=== PATIENT | female | born 1975 | race Asian ===

== ENCOUNTER 2018-02-17 13:51 | Emergency (ER) | payer BC ==
[~2018-02-17] VITALS: Ht 162.6 cm; Wt 55.3 kg
[2018-02-17 14:07] VITALS: Ht 162.6 cm; Wt 55.3 kg
[2018-02-17 16:09] LABS: BASOPHIL % 0.1 % (0-2); PLATELET COUNT 216 x10^3mcL (130-400)
[2018-02-17 16:11] LABS: CALCIUM 8.4 mg/dL (8.5-10.1); CARBON DIOXIDE 27.8 mmol/L (21-32); CHLORIDE SERUM 104 mmol/L (98-107); CREATININE SERUM 0.4 mg/dL (0.6-1.0); GFR1 > 60 mL/min; GLUCOSE SERUM 89 mg/dL (74-106); POTASSIUM SERUM 3.8 mmol/L (3.5-5.1); SODIUM SERUM 141 mmol/L (136-145)
[2018-02-17 16:13] LABS: RED CELL DISTRIBUTION WIDTH 14.6 % (11.5-14.5)
[2018-02-17 16:17] LABS: ALBUMIN 3.6 g/dL (3.4-5.0); ALKALINE PHOSPHATASE 63 U/L (46-116); ALT/SGPT 19 U/L (14-59); AST/SGOT 21 U/L (15-37); BILIRUBIN TOTAL 0.54 mg/dL (0.20-1.00); LIPASE 146 IU/L (73-393)
[2018-02-17 16:46] VITALS: BP 92/55
== END 2018-02-17 16:46 | disposition home or self-care (01) ==
LOC: ED 13:51
PROVIDERS: Emergency Medicine
DX: R10.9 Unspecified abdominal pain (principal); R11.10 Vomiting, unspecified; R19.7 Diarrhea, unspecified
CPT/HCPCS: J1885; J2405; J3010; J7030; Q0092

== ENCOUNTER 2019-01-13 07:44 | Emergency (ER) | payer OTHER, BC ==
[~2019-01-13] VITALS: Ht 160 cm; Wt 55.8 kg
[2019-01-13 07:52] VITALS: Ht 160 cm; Wt 55.8 kg
[2019-01-13 08:30] LABS: BASOPHIL % 0.8 % (0-2); PLATELET COUNT 203 x10^3mcL (130-400); RED CELL DISTRIBUTION WIDTH 13.5 % (11.5-14.5)
[2019-01-13 08:48] LABS: CALCIUM 8.5 mg/dL (8.5-10.1); CARBON DIOXIDE 25.5 mmol/L (21-32); CHLORIDE SERUM 99 mmol/L (98-107); CREATININE SERUM 0.7 mg/dL (0.6-1.0); GFR1 > 60 mL/min; GLUCOSE SERUM 118 mg/dL (74-106); POTASSIUM SERUM 3.6 mmol/L (3.5-5.1); SODIUM SERUM 135 mmol/L (136-145)
[2019-01-13 08:53] LABS: ALBUMIN 3.9 g/dL (3.4-5.0); ALKALINE PHOSPHATASE 76 U/L (46-116); ALT/SGPT 36 U/L (14-59); AST/SGOT 33 U/L (15-37); BILIRUBIN TOTAL 0.31 mg/dL (0.20-1.00); TOTAL PROTEIN, SERUM 7.7 g/dL (6.4-8.2)
[2019-01-13 08:57] LABS: CK-MB < 0.5 ng/mL (0-3.6); CREATINE KINASE 54 U/L (26-192); UA SPECIFIC GRAVITY 1.025 (1.005-1.035); microscopic required? YES; urine erythrocyte 3+ (NEGATIVE)
[2019-01-13 08:58] LABS: FREE T4 0.86 ng/dL (0.76-1.46); FREE THYROXINE INDEX 2.5 ug/dL (1.4-4.5); T4(THYROXINE) 7.1 ug/dL (4.7-13.3)
[2019-01-13 09:27] LABS: T3 TOTAL 0.59 ng/mL
[2019-01-13 10:33] LABS: ERYTHROCYTE SED RATE 25 mm/hr (0-20)
[2019-01-13 12:00] VITALS: BP 98/61
== END 2019-01-13 12:00 | disposition home or self-care (01) ==
LOC: ED 07:44
PROVIDERS: Specialist
DX: J10.1 Influenza due to other identified influenza virus with other respiratory manifestations (principal); M79.10 Myalgia, unspecified site
CPT/HCPCS: 84439; 87804; J1885; J7030; Q0092

== ENCOUNTER 2019-08-24 22:47 | Inpatient (IN) | payer OTHER, BC ==
[~2019-08-24] VITALS: Ht 160 cm; Wt 61.9 kg
[2019-08-24 22:53] VITALS: Ht 160 cm; Wt 61.9 kg
[2019-08-25 00:20] LABS: BASOPHIL % 1.2 % (0-2); PLATELET COUNT 300 x10^3mcL (130-400); RED CELL DISTRIBUTION WIDTH 13.2 % (11.5-14.5)
[2019-08-25 00:27] LABS: CALCIUM 8.8 mg/dL (8.5-10.1); CARBON DIOXIDE 32.7 mmol/L (21-32); CHLORIDE SERUM 101 mmol/L (98-107); CREATININE SERUM 0.7 mg/dL (0.6-1.0); GFR1 > 60 mL/min; GLUCOSE SERUM 96 mg/dL (74-106); POTASSIUM SERUM 3.7 mmol/L (3.5-5.1); SODIUM SERUM 140 mmol/L (136-145)
[2019-08-25 00:32] LABS: ALBUMIN 3.8 g/dL (3.4-5.0); ALKALINE PHOSPHATASE 81 U/L (46-116); ALT/SGPT 43 U/L (14-59); AST/SGOT 29 U/L (15-37); BILIRUBIN TOTAL 0.1 mg/dL (0.20-1.00); TOTAL PROTEIN, SERUM 7.4 g/dL (6.4-8.2); TRIGLYCERIDES 151 mg/dL (<150)
[2019-08-25 00:33] LABS: UA SPECIFIC GRAVITY 1.015 (1.005-1.035); microscopic required? YES; urine erythrocyte 3+ (NEGATIVE)
[2019-08-25 00:38] LABS: CHOLESTEROL 214 mg/dL (<200); CHOLESTEROL/HDL RATIO 2.2; HDL CHOLESTEROL 99 mg/dL (40-60)
[2019-08-25 02:29] VITALS: BP 105/48
[2019-08-25 04:07] LABS: AMPHETAMINE QUAL UR NONE DETECTED (See below)
[2019-08-25 05:56] VITALS: BP 93/55
[2019-08-25 06:33] LABS: BASOPHIL % 1.5 % (0-2); PLATELET COUNT 271 x10^3mcL (130-400); RED CELL DISTRIBUTION WIDTH 13.4 % (11.5-14.5)
[2019-08-25 07:13] LABS: CALCIUM 8.1 mg/dL (8.5-10.1); CARBON DIOXIDE 26.8 mmol/L (21-32); CHLORIDE SERUM 106 mmol/L (98-107); CREATININE SERUM 0.6 mg/dL (0.6-1.0); GFR1 > 60 mL/min; GLUCOSE SERUM 88 mg/dL (74-106); POTASSIUM SERUM 4.1 mmol/L (3.5-5.1); SODIUM SERUM 140 mmol/L (136-145)
[2019-08-25 09:53] VITALS: BP 94/31
[2019-08-25] MEDS ORDERED: LEVOFLOXACIN750 M1 PO (10:53)
[2019-08-25 11:56] VITALS: BP 94/31
== END 2019-08-25 13:00 | disposition home or self-care (01) | DRG 690 ==
LOC: ED 22:47 → MU 08-25 01:18
PROVIDERS: Specialist; ADMIT Internal Medicine
DX: N10 Acute pyelonephritis (principal); N17.0 Acute kidney failure with tubular necrosis; N20.0 Calculus of kidney; E78.5 Hyperlipidemia, unspecified; Z87.442 Personal history of urinary calculi; Z68.23 Body mass index [BMI] 23.0-23.9, adult; Z87.440 Personal history of urinary (tract) infections; Z83.3 Family history of diabetes mellitus; Z72.89 Other problems related to lifestyle
CPT/HCPCS: G0378; J0696; J1885; J2405; J7030; J7060